=== PATIENT | male | born 1945 | race Two or more races ===

== ENCOUNTER → 2023-05-15 13:00 | Outpatient (REF) | payer MEDICARE, SELFPAY ==
--- NOTE | 2023-05-15 13:04 | CA_ITS ---
Transthoracic Echocardiogram Patient (Last, First, Middle): Stacia Robledo, Gender: Male Date of : 1945 Age: 77 Procedure Date: 05/15/2023 Procedure Type: Transthoracic Echocardiogram Location: OP Height: 165.1 cm Weight: 90.72 kg BSA: 1.98 m2 Heart Rate: 73 bpm BP: 136 / 60 mmHg Mill Supervisor: NICOLAS Referring MD: Shay Naranjo DO Chemical Comp[employer] Helper: Earl Mlechor MD Symptoms: [id number] Study Quality: Adequate w contrast ECG Rhythm: Sinus Conclusions: - 1. Normal LV ejection fraction 55-60% with impaired relaxation filling pattern 2. [id number] tricuspid regurgitation 3. Upper limits of normal RV systolic pressure 4. No pericardial effusion Findings Procedure Information Contrast agent, definity, is being given per protocol without apparent complications. Left Ventricle Normal left ventricular size, thickness, and systolic function. The visually estimated ejection fraction is between 55-60%. Spectral Doppler is indicative of an impaired relaxation filling pattern. E/E prime ratio is between 8 and 15 consistent with indeterminate filling pressures. Right Ventricle Normal right ventricular cavity size and systolic function. Atria The left atrium is likely dilated. Interatrial shunt cannot be excluded. The right atrium is normal in size. Aortic Valve Normal aortic valve structure and function. There is no aortic valve stenosis. There is no aortic valve regurgitation. Mitral Valve Normal mitral valve structure and function. There is trace mitral valve regurgitation. There is no mitral valve stenosis. Pulmonic Valve The pulmonic valve is likely normal. There is trace to mild pulmonic valve regurgitation. Tricuspid Valve Normal tricuspid valve structure. There is mild to moderate tricuspid valve regurgitation. The right ventricular systolic pressure is 35 mmHg. Normal right atrial pressure. There is no evidence of pulmonary hypertension. Great Vessels All visible segments of the aorta are normal in size. The pulmonary artery was not well visualized. Venous The inferior vena cava is normal in size and collapses greater than 50% with inspiration. Pericardium/Pleural There is no evidence of pericardial effusion. Prior Study Comparison No prior study available for comparison. Measurements 2D Linear Measurements IVSd: 1.11 0.6-0.9/0.6-1.0 cm LVIDd: 4.67 3.9-5.3/4.2-5.9 cm LVIDd Index: 2.36 2.4-3.2/2.2-3.1 cm/m2 LVIDs: 3.36 2.0-3.6 cm LVPWd: 0.79 0.7-1.1 cm LA Diam: 3.90 2.7-3.8/3.0-4.0 cm LAIDs Index: 1.97 1.5-2.3 cm/m2 LV Mass: 188.75 67-162/88-224 g LV Mass Index: 95.33 43-95/49-115 g/m2 LVOT Diam: 1.90 3.0+(-)1.3 cm 2D Systolic Function EF 4C: 64.10 >55% EF 2C: 49.70 >55% EF BiP: 55.80 >55% Mitral Valve MV Pk E: 0.57 MV PK A: 0.51 MV Decel Time: 139.00 E/A: 1.10 E'Lateral: 9.90 E'Medial: 7.07 E/E' Med: 8.10 E/E' Lat: 5.80 PHT: 41.00 MVA PHT: 5.37 Decel Nuckolls: 4.09 Aortic Valve AoV Pk Kenneth: 1.21 AoV Pk Grad: 6.00 MICHAEL: 2.47 LVOT LVOT Pk Kenneth: 1.02 LVOT Mn Kenneth: 0.69 LVOT VTI: 0.21 LVOT Pk Grad: 4.00 LVOT Mn Grad: 3.00 LVOT Diam: 1.90 LVOT Area: 2.84 Diastolic Function MV Pk E: 0.57 MV Pk A: 0.51 E/A: 1.10 E'Medial: 7.07 E/E' Med: 8.10 E' Laterial: 9.90 E/E' Lat: 5.80 Right Ventricle TAPSE (mm): 19.40 TVS' Kenneth: 16.30 Tricuspid Valve TR Pk Kenneth: 2.81 TR Pk Grad: 32.00 RA Press: 3.00 RVSP: 35.00 Great Vessels Aorta Sinus of Valsalva: 2.70 2.0-3.5 cm Ao Asc: 3.10 2.1-3.4 cm Pulmonary Valve PV Pk Kenneth: 0.86 Peak PV Grad: 3.00 Updated in Other Vendor System with Status of Final Earl Melchor MD electronically signed on 05/16/2023 12:26:41 PM with status of Final
== END ==
LOC: HO.CARD 13:00
PROVIDERS: Visit Provider Hospitalist
DX: R06.00 Dyspnea, unspecified (principal)
CPT/HCPCS: 93306; Q9957

== ENCOUNTER → 2023-05-15 13:04 | Outpatient (BNV) | payer MEDICARE, SELFPAY | PROVIDERS: Visit Provider Internal Medicine Cardiovascular Disease | DX: I36.1 Nonrheumatic tricuspid (valve) insufficiency (principal) | CPT/HCPCS: 93306 ==